=== PATIENT | male | born 1955 | race Caucasian/White ===

== ENCOUNTER 2016-11-05 09:05 | Emergency (ER) | payer OTHER, SELFPAY ==
--- NOTE | 2016-11-05 09:54 | RAD ---
EXAM: CHEST TWO VIES 11/05/16 HISTORY: Dyspnea. COMPARISON: .. FINDINGS: Two views chest: Normal cardiac silhouette. The pulmonary vessels and hilum are normal. Costophrenic angles are clear . No masses or consolidation. No pneumothorax or osseous abnormalities. IMPRESSION: No acute cardiopulmonary process. POS: [facility]
[2016-11-05 10:02] LABS: #Basophils 0.1 thou/uL (0.0-0.2); #Eosinphils 0.6 thou/uL (0.0-0.7); #Lymphocytes 1.3 thou/uL (1.20-3.40); #Monocytes 0.6 thou/uL (0.11-0.59); #Neutrophils 4.4 thou/uL (1.40-6.50); %Basophils 1.9 % (0.0-1.0); %Eosinophils 8.3 % (0.0-10.0); %Lymphocytes 18.3 % (21.0-51.0); %Neutrophils 63.5 % (42.0-75.0); Hemoglobin 15.8 g/dL (14.0-18.0); Mean Corpuscular HGB CONC 32.4 g/dL (32.0-36.0); Mean Corpuscular Hemoglobin 29.5 pg (27.0-31.0); Mean Corpuscular Volume 90.9 fl (80.0-94.0); Mean Platelet Volume 6.8 fL (7.4-10.4); Platelet Count 196 thou/uL (130-400); RBC Distribution Width 13.1 % (11.5-14.5); Red Blood Cell (RBC) Count 5.36 mill/uL (4.70-6.10); White Blood Cell (WBC) Count 6.9 thou/uL (4.8-10.8)
[2016-11-05 10:19] LABS: Bilirubin Negative (Negative); Blood, Urine Trace (Negative); Clarity Clear (Clear); Glucose, Urine (Dipstick) Negative (Negative); Leukocyte Negative (Negative); Nitrite Negative (Negative); Protein, Urine (Dipstick) 30 mg/dL (Neg-Trace); RBC/HPF 0-3 HPF (0-3); Specific Gravity, Urine 1.025 (1.005-1.030)
[2016-11-05 10:20] LABS: ALT (SGPT) 48 U/L (0-55); AST (SGOT) 33 U/L (5-34); Albumin 3.9 g/dL (3.5-5.0); Alkaline Phosphatase 64 U/L (40-150); Anion Gap 15 mmol/L (10-20); BUN (Urea Nitrogen) 13 mg/dL (8.4-25.7); Bilirubin, Total 0.9 mg/dL (0.2-1.2); Calc. Creatinine Clearance 0 mL/min (70-130); Carbon Dioxide 26 mmol/L (22-29); Chloride 102 mmol/L (98-107); Estimated GFR-MDRD Greater than 90; Globulin 2.9 g/dL (2.4-3.5); Glucose 140 mg/dL (70-105); Potassium 4.3 mmol/L (3.5-5.1); Protein, Total 6.8 g/dL (6.0-8.3); Sodium 139 mmol/L (136-145)
[2016-11-05 10:20] LABS: Bacteria/HPF None Seen HPF (None Seen); Squamous Epithelial 0-3 HPF (0-3); WBC/HPF None Seen HPF (0-3)
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
== END 2016-11-05 11:30 | disposition home or self-care (01) ==
LOC: MADERS 09:05
DX: J06.9 Acute upper respiratory infection, unspecified (principal); G47.9 Sleep disorder, unspecified; I10 Essential (primary) hypertension; E66.9 Obesity, unspecified; Z79.899 Other long term (current) drug therapy
CPT/HCPCS: 36415; 71020; 80053; 81003; 81015; 83880; 84484; 85025; 93005

== ENCOUNTER 2018-05-20 10:11 | Emergency (ER) | payer SELFPAY ==
[~2018-05-20 10:11] MED LIST: Nitroglycerin 0.4 MG TAB (25 Tab Bottle) ONE
[2018-05-20 10:48] LABS: INR-International Normal Ratio 0.9; PTT 23.8 SEC (22.9-36.1); Prothrombin Time 12.6 SEC (12.0-14.7)
--- NOTE | 2018-05-20 10:52 | RAD ---
CHEST ONE VIEW: Comparison: 09-05-15, 11-05-16 History: Dyspnea. FINDINGS: Normal cardiac silhouette. The pulmonary vessels are prominent. There are interstitial opacities due to edema or infiltrate. No consolidation or mass. No pleural effusion or pneumothorax. IMPRESSION: Interstitial opacification due to edema or infiltrate. Continued surveillance is recommended. POS: [facility]
[2018-05-20 10:58] LABS: Hemoglobin 15.3 g/dL (14.0-18.0); Mean Corpuscular HGB CONC 32.1 g/dL (32.0-36.0); Mean Corpuscular Hemoglobin 29.8 pg (27.0-31.0); Mean Corpuscular Volume 92.9 fL (78.0-98.0); Mean Platelet Volume 6.7 fL (7.4-10.4); Platelet Count 192 thou/uL (130-400); RBC Distribution Width 13.4 % (11.5-14.5); Red Blood Cell (RBC) Count 5.14 mill/uL (4.70-6.10); White Blood Cell (WBC) Count 6.2 thou/uL (4.8-10.8)
[2018-05-20 10:59] LABS: ALT (SGPT) 71 U/L (8-55); AST (SGOT) 51 U/L (5-34); Albumin 3.9 g/dL (3.4-4.8); Alkaline Phosphatase 61 U/L (40-150); Anion Gap 19 mmol/L (10-20); BUN (Urea Nitrogen) 18 mg/dL (8.4-25.7); Bilirubin, Total 0.8 mg/dL (0.2-1.2); Calc. Creatinine Clearance 0 mL/min (70-130); Calcium 9.2 mg/dL (7.8-10.44); Carbon Dioxide 21 mmol/L (23-31); Chloride 105 mmol/L (98-107); Estimated GFR-MDRD 88; Globulin 2.8 g/dL (2.4-3.5); Glucose 141 mg/dL (80-115); Magnesium 1.5 mg/dL (1.6-2.6); Potassium 4.2 mmol/L (3.5-5.1); Protein, Total 6.7 g/dL (5.8-8.1); Sodium 141 mmol/L (136-145)
[2018-05-20 11:01] LABS: CKMB 1.4 ng/mL (0-6.6); Troponin I 0.014 ng/mL (< 0.028)
[2018-05-20 11:04] LABS: Manual Diff?? YES
[2018-05-20 11:05] LABS: Lymphocytes 27 % (21-51); MDiff Complete? YES; Monocytes 7 % (0-10)
[2018-05-20 11:06] LABS: Anisocytosis SLIGHT = 6-15 cells (100X) (0-5/hpf); Eosinophils 3 % (0-10); PLT Morphology Comment Appears Adequate
[2018-05-20] MEDS ORDERED: Magnesium Sulfate 2 GM/NS 0.9% 50 ML BAG ONE (11:15)
[2018-05-20] MEDS ORDERED: Furosemide 40 MG/4 ML VIAL ONE (11:38)
== END 2018-05-20 11:58 | disposition short-term general hospital (02) ==
LOC: MADERS 10:11
DX: E87.70 Fluid overload, unspecified (principal); R09.02 Hypoxemia; I10 Essential (primary) hypertension; E66.9 Obesity, unspecified
CPT/HCPCS: 71045; 80053; 82553; 83735; 83880; 84484; 85025; 85610; 85730; 93005; 94660; 94760; 96365; 96375; J1940; J3475

== ENCOUNTER 2019-04-21 12:53 | Emergency (ER) | payer SELFPAY ==
[2019-04-21 13:43] LABS: Bilirubin Negative (Negative); Blood, Urine Large (Negative); Glucose, Urine (Dipstick) Negative (Negative); Leukocyte Negative (Negative); Nitrite Negative (Negative); Protein, Urine (Dipstick) 100 mg/dL (Neg-Trace)
[2019-04-21 13:47] LABS: Clarity Hazy (Clear); RBC/HPF Greater than 50 HPF (0-3)
[2019-04-21 13:48] LABS: Bacteria/HPF Rare-Few HPF (None Seen); Squamous Epithelial 0-3 HPF (0-3); WBC/HPF 0-3 HPF (0-3)
[2019-04-21 14:04] LABS: #Basophils 0.2 thou/uL (0.0-0.2); #Eosinphils 0.3 thou/uL (0.0-0.7); #Lymphocytes 1.6 thou/uL (1.20-3.40); #Monocytes 0.8 thou/uL (0.11-0.59); #Neutrophils 8.6 thou/uL (1.40-6.50); %Basophils 1.7 % (0.0-1.0); %Eosinophils 2.9 % (0.0-10.0); %Lymphocytes 13.8 % (21.0-51.0); %Monocytes 7.2 % (0.0-10.0); %Neutrophils 74.4 % (42.0-75.0); Hemoglobin 15.6 g/dL (14.0-18.0); Mean Corpuscular HGB CONC 31.9 g/dL (32.0-36.0); Mean Corpuscular Hemoglobin 29.7 pg (27.0-31.0); Mean Platelet Volume 5.6 fL (7.4-10.4); Platelet Count 209 thou/uL (130-400); RBC Distribution Width 12.8 % (11.5-14.5); Red Blood Cell (RBC) Count 5.27 mill/uL (4.70-6.10); White Blood Cell (WBC) Count 11.6 thou/uL (4.8-10.8)
[2019-04-21] MEDS ORDERED: Lisinopril 10 MG TAB ONE (14:05)
[2019-04-21 14:24] LABS: ALT (SGPT) 84 U/L (8-55); AST (SGOT) 80 U/L (5-34); Albumin 4.2 g/dL (3.4-4.8); Alkaline Phosphatase 88 U/L (40-150); Anion Gap 17 mmol/L (10-20); BUN (Urea Nitrogen) 14 mg/dL (8.4-25.7); Bilirubin, Total 0.7 mg/dL (0.2-1.2); Calc. Creatinine Clearance 0 mL/min (70-130); Calcium 9.9 mg/dL (7.8-10.44); Carbon Dioxide 26 mmol/L (23-31); Chloride 101 mmol/L (98-107); Estimated GFR-MDRD 60; Globulin 3.6 g/dL (2.4-3.5); Glucose 136 mg/dL (80-115); Lipase 21 U/L (8-78); Potassium 4.1 mmol/L (3.5-5.1); Protein, Total 7.8 g/dL (5.8-8.1); Sodium 140 mmol/L (136-145)
[2019-04-21] MEDS ORDERED: Tamsulosin HCl 0.4 MG CAP ONE (15:05)
--- NOTE | 2019-04-21 15:09 | CT ---
ABDOMEN AND PELVIC CT SCAN WITHOUT IV CONTRAST: HISTORY: Left upper abdominal pain, left flank pain. FINDINGS: The lung bases are clear. Borderline sized fatty liver with some minimal fatty sparing adjacent to th e gallbladder. No common duct dilatation. The gallbladder appears unremarkable. The visualized pancre as, spleen, and adrenal glands are unremarkable. There is some minimal fat stranding of the central m esentery, possibly changes of minimal nonspecific mesenteric panniculitis. There is an obstructing 0. 4 cm diameter calculus at the proximal upper left ureter with proximal hydronephrosis and perirenal f at stranding, evidence for obstruction. No evidence for other ureteral calculus. Minimal colonic dive rticulosis without diverticulitis. No CT evidence for acute appendicitis. IMPRESSION: Obstructing proximal 0.4 cm left ureteral calculus with hydronephrosis and perirenal fat stranding. P rominent fatty changes in the liver. Colonic diverticulosis without diverticulitis. Other findings as above. POS: [facility]
--- NOTE | 2019-04-21 15:11 | RAD ---
PA AND LATERAL VIEWS CHEST: 04/21/19 HISTORY: Left upper abdominal pain. FINDINGS: Comparison is made with the exam of 11/05/16. The heart size is borderline. The lungs are expanded without focal areas of consolidation, pneumothor aces, chi pulmonary edema, or pleural effusions. There are degenerative changes in the spine. IMPRESSION: No radiographic evidence of acute cardiopulmonary process. POS: [facility]
== END 2019-04-21 15:25 | disposition home or self-care (01) ==
LOC: MADERS 12:53
DX: N13.2 Hydronephrosis with renal and ureteral calculous obstruction (principal); I11.0 Hypertensive heart disease with heart failure; I50.9 Heart failure, unspecified; Z86.73 Personal history of transient ischemic attack (TIA), and cerebral infarction without residual deficits; F41.9 Anxiety disorder, unspecified; Z79.84 Long term (current) use of oral hypoglycemic drugs; Z79.899 Other long term (current) drug therapy
CPT/HCPCS: 71046; 74176; 80053; 81001; 83690; 84484; 85025; 93005; 94760

== ENCOUNTER 2019-09-23 13:52 | Emergency (ER) | payer SELFPAY ==
[2019-09-23 15:20] LABS: INR-International Normal Ratio 0.9; PTT 24.7 SEC (22.9-36.1); Prothrombin Time 12.1 SEC (12.0-14.7)
[2019-09-23 15:26] LABS: ALT (SGPT) 50 U/L (8-55); AST (SGOT) 50 U/L (5-34); Albumin 4.3 g/dL (3.4-4.8); Alkaline Phosphatase 88 U/L (40-110); Anion Gap 16 mmol/L (10-20); BUN (Urea Nitrogen) 12 mg/dL (8.4-25.7); Bilirubin, Total 0.6 mg/dL (0.2-1.2); Calc. Creatinine Clearance 0 mL/min (70-130); Carbon Dioxide 27 mmol/L (23-31); Chloride 103 mmol/L (98-107); Estimated GFR-MDRD 78; Globulin 2.9 g/dL (2.4-3.5); Glucose 164 mg/dL (80-115); Potassium 4.3 mmol/L (3.5-5.1); Protein, Total 7.2 g/dL (5.8-8.1); Sodium 142 mmol/L (136-145)
[2019-09-23 15:32] LABS: #Basophils 0.1 thou/uL (0.0-0.2); #Eosinphils 0.4 thou/uL (0.0-0.7); #Lymphocytes 1.6 thou/uL (1.20-3.40); #Monocytes 0.7 thou/uL (0.11-0.59); #Neutrophils 4.8 thou/uL (1.40-6.50); %Basophils 1.9 % (0.0-1.0); %Eosinophils 5.5 % (0.0-10.0); %Lymphocytes 20.9 % (21.0-51.0); %Monocytes 8.8 % (0.0-10.0); Anisocytosis SLIGHT = 6-15 cells (100X) (0-5/hpf); Hemoglobin 14.8 g/dL (14.0-18.0); MDiff Complete? YES; Mean Corpuscular Hemoglobin 29.6 pg (27.0-31.0); Mean Corpuscular Volume 98.8 fL (78.0-98.0); Platelet Count 258 thou/uL (130-400); Platelet Morphology Comment Appears Adequate; RBC Distribution Width 14.2 % (11.5-14.5); White Blood Cell (WBC) Count 7.5 thou/uL (4.8-10.8)
--- NOTE | 2019-09-23 15:34 | CT ---
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 No acute hemorrhage or i nfarct. No midline shift. No mass effect. The orbits are intact. No retrobulbar hematoma. Calvarium is intact. Paranasal sinuses and mastoids are clear. Impression: No acute intracranial abnormality.
--- NOTE | 2019-09-23 15:39 | RAD ---
PORTABLE CHEST: 09/23/19 HISTORY: Syncope. Altered mental status. COMPARISON: 05/20/18 study. Heart size is enlarged. Lungs appear clear of any infiltrative process. No signs of overt failure. IMPRESSION: Mild cardiomegaly. POS: [facility]
[2019-09-23] MEDS ORDERED: Aspirin Chewable 81 MG TAB ONE (15:54)
[2019-09-23 16:03] LABS: Bilirubin Negative (Negative); Blood, Urine Negative (Negative); Clarity Hazy (Clear); Glucose, Urine (Dipstick) Negative (Negative); Leukocyte Negative (Negative); Nitrite Negative (Negative); Protein, Urine (Dipstick) 30 mg/dL (Neg-Trace)
[2019-09-23 16:11] LABS: Bacteria/HPF Rare-Few HPF (None Seen); RBC/HPF 0-3 HPF (0-3); Squamous Epithelial 0-3 HPF (0-3); WBC/HPF None Seen HPF (0-3)
== END 2019-09-23 16:45 | disposition left against medical advice (07) ==
LOC: MADERS 13:52
DX: I16.0 Hypertensive urgency (principal); I11.0 Hypertensive heart disease with heart failure; I50.9 Heart failure, unspecified; I67.83 Posterior reversible encephalopathy syndrome; E11.9 Type 2 diabetes mellitus without complications; F41.9 Anxiety disorder, unspecified; Z86.19 Personal history of other infectious and parasitic diseases; Z86.73 Personal history of transient ischemic attack (TIA), and cerebral infarction without residual deficits; Z79.82 Long term (current) use of aspirin; Z79.84 Long term (current) use of oral hypoglycemic drugs; Z79.899 Other long term (current) drug therapy
CPT/HCPCS: 70450; 71045; 80053; 81003; 81015; 84484; 85025; 85610; 85730; 93005

== ENCOUNTER 2020-05-16 06:30 | Emergency (ER) | payer SELFPAY ==
[~2020-05-16 06:30] MED LIST changes: -Nitroglycerin 0.4 MG TAB (25 Tab Bottle) ONE; +Sodium Chloride 0.9% 100 ML BAG ONE
[2020-05-16 07:16] LABS: #Basophils 0.2 thou/uL (0.0-0.2); #Eosinphils 0.4 thou/uL (0.0-0.7); #Lymphocytes 1.5 thou/uL (1.20-3.40); #Neutrophils 7.3 thou/uL (1.40-6.50); %Basophils 1.6 % (0.0-1.0); %Eosinophils 3.5 % (0.0-10.0); %Lymphocytes 14.7 % (21.0-51.0); %Monocytes 9.8 % (0.0-10.0); %Neutrophils 70.4 % (42.0-75.0); Mean Corpuscular HGB CONC 31.2 g/dL (32.0-36.0); Mean Corpuscular Hemoglobin 30.5 pg (27.0-31.0); Mean Corpuscular Volume 97.7 fL (78.0-98.0); Mean Platelet Volume 5.9 fL (7.4-10.4); Platelet Count 226 thou/uL (130-400); RBC Distribution Width 13.1 % (11.5-14.5); Red Blood Cell (RBC) Count 4.61 mill/uL (4.70-6.10); White Blood Cell (WBC) Count 10.4 thou/uL (4.8-10.8)
[2020-05-16] MEDS ORDERED: HYDROmorphone 0.5 MG/0.5 ML SYRINGE ONE (07:18)
[2020-05-16 07:30] LABS: ALT (SGPT) 65 U/L (8-55); AST (SGOT) 50 U/L (5-34); Alkaline Phosphatase 72 U/L (40-110); Anion Gap 18 mmol/L (10-20); BUN (Urea Nitrogen) 10 mg/dL (8.4-25.7); Bilirubin, Total 0.7 mg/dL (0.2-1.2); Calc. Creatinine Clearance 0 mL/min (70-130); Calcium 8.9 mg/dL (7.8-10.44); Carbon Dioxide 28 mmol/L (23-31); Chloride 97 mmol/L (98-107); Estimated GFR-MDRD 83; Globulin 3.2 g/dL (2.4-3.5); Glucose 163 mg/dL (80-115); Potassium 3.9 mmol/L (3.5-5.1); Protein, Total 7.2 g/dL (5.8-8.1); Sodium 139 mmol/L (136-145)
--- NOTE | 2020-05-16 08:27 | CT ---
CT arteriogram chest with IV contrast and 3-D imaging CT arteriogram abdomen with IV contrast and 3-D imaging HISTORY: Chest and back pain. COMPARISON: 04/21/2019. FINDINGS: There is good contrast opacification pulmonary arteries and aorta. Bovine origin of the gre at vessels at the aortic arch. No intimal flap. Scattered mild arterial calcification. Narrowing of the origin of the superior mesenteric artery by a pproximately 50%. Other visceral arteries are widely patent. Liver is diffusely hypodense. Circumaortic left renal vein is noted. Diverticula arise from the colon without adjacent inflammation. Degenerative changes throughout the lumbar spine. IMPRESSION : No evidence of aortic dissection or other acute vascular abnormality. Atherosclerosis. 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 No evide nce of complication. Hepato-steatosis. Diverticulosis. No evidence of diverticulitis.
[2020-05-16] MEDS ORDERED: Lorazepam 2 MG/ML VIAL ONE (08:58)
[2020-05-16] MEDS ORDERED: Iopamidol 370 76% 125 ML VIAL FS ONE (13:05)
== END 2020-05-16 09:30 | disposition home or self-care (01) ==
LOC: MADERS 06:30
DX: M54.2 Cervicalgia (principal); M54.9 Dorsalgia, unspecified; I10 Essential (primary) hypertension; F41.9 Anxiety disorder, unspecified; E11.9 Type 2 diabetes mellitus without complications; I11.0 Hypertensive heart disease with heart failure; I50.9 Heart failure, unspecified; E66.9 Obesity, unspecified; Z86.73 Personal history of transient ischemic attack (TIA), and cerebral infarction without residual deficits
CPT/HCPCS: 71275; 72191; 74175; 80053; 83880; 84484; 85025; 93005; 96374; 96375; J1170; J2060; J3490; Q9967

== ENCOUNTER 2020-07-01 22:56 | Emergency (ER) | payer SELFPAY ==
[2020-07-01] MEDS ORDERED: Lidocaine 1% w/Epinephrine 1:100K 20 ML VIAL ONE (23:47)
== END 2020-07-02 01:01 | disposition home or self-care (01) ==
LOC: MADERS 22:56
DX: S01.511A Laceration without foreign body of lip, initial encounter (principal); S50.311A Abrasion of right elbow, initial encounter; E11.9 Type 2 diabetes mellitus without complications; I11.0 Hypertensive heart disease with heart failure; I50.9 Heart failure, unspecified; F41.9 Anxiety disorder, unspecified; I67.83 Posterior reversible encephalopathy syndrome; E66.9 Obesity, unspecified; Z86.73 Personal history of transient ischemic attack (TIA), and cerebral infarction without residual deficits; W18.2XXA Fall in (into) shower or empty bathtub, initial encounter; Y93.E1 Activity, personal bathing and showering; Y92.002 Bathroom of unspecified non-institutional (private) residence as the place of occurrence of the external cause
CPT/HCPCS: 12052

== ENCOUNTER 2021-02-14 13:05 | Emergency (ER) | payer MEDICARE, SELFPAY ==
[2021-02-14 17:05] LABS: INR-International Normal Ratio 0.9; Prothrombin Time 11.9 sec (12.0-14.7)
[2021-02-14 17:06] LABS: Hemoglobin 16.6 g/dL (14.0-18.0); Mean Corpuscular HGB CONC 30.9 g/dL (32.0-36.0); Mean Corpuscular Hemoglobin 30.8 pg (27.0-31.0); Mean Platelet Volume 6.5 fL (7.4-10.4); PTT 25.4 sec (22.9-36.1); Platelet Count 280 thou/uL (130-400); RBC Distribution Width 15.2 % (11.5-14.5); Red Blood Cell (RBC) Count 5.39 mill/uL (4.70-6.10); White Blood Cell (WBC) Count 11.1 thou/uL (4.8-10.8)
[2021-02-14 17:07] LABS: #Basophils 0.2 thou/uL (0.0-0.2); #Eosinphils 0.6 thou/uL (0.0-0.7); #Lymphocytes 3.5 thou/uL (1.20-3.40); #Neutrophils 5.9 thou/uL (1.40-6.50); %Basophils 1.7 % (0.0-1.0); %Eosinophils 5.3 % (0.0-10.0); %Lymphocytes 31.6 % (21.0-51.0); %Monocytes 8.8 % (0.0-10.0); %Neutrophils 52.7 % (42.0-75.0)
[2021-02-14 17:12] LABS: Anion Gap 28 mmol/L (10-20); BUN (Urea Nitrogen) 12 mg/dL (8.4-25.7); Calc. Creatinine Clearance 0 mL/min (70-130); Carbon Dioxide 17 mmol/L (23-31); Chloride 102 mmol/L (98-107); Potassium 4.2 mmol/L (3.5-5.1); Sodium 143 mmol/L (136-145)
[2021-02-14 17:13] LABS: ALT (SGPT) 55 U/L (8-55); AST (SGOT) 57 U/L (5-34); Albumin 4.5 g/dL (3.4-4.8); Alkaline Phosphatase 96 U/L (40-110); Calcium 9.4 mg/dL (7.8-10.44); Globulin 3.5 g/dL (2.4-3.5); Glucose 132 mg/dL (80-115)
== END 2021-02-14 17:27 | disposition short-term general hospital (02) ==
LOC: MADERS 15:28
DX: R56.9 Unspecified convulsions (principal); E11.9 Type 2 diabetes mellitus without complications; I11.0 Hypertensive heart disease with heart failure; I50.9 Heart failure, unspecified; E66.9 Obesity, unspecified; I67.83 Posterior reversible encephalopathy syndrome; Z86.73 Personal history of transient ischemic attack (TIA), and cerebral infarction without residual deficits
CPT/HCPCS: 71045; 80053; 84484; 85025; 85610; 85730

== ENCOUNTER 2021-07-13 09:35 | Emergency (ER) | payer MEDICARE ==
[2021-07-13] MEDS ORDERED: Diazepam 10 MG/2 ML SYRINGE ONE (10:02)
== END 2021-07-13 10:38 | disposition home or self-care (01) ==
LOC: MADERS 09:35
DX: G40.909 Epilepsy, unspecified, not intractable, without status epilepticus (principal); I11.0 Hypertensive heart disease with heart failure; I50.9 Heart failure, unspecified; E11.9 Type 2 diabetes mellitus without complications; E66.9 Obesity, unspecified; Z79.899 Other long term (current) drug therapy; Z79.84 Long term (current) use of oral hypoglycemic drugs; Z79.82 Long term (current) use of aspirin
CPT/HCPCS: 96372; 99283; J3360

== ENCOUNTER 2021-12-19 06:30 | Emergency (ER) | payer MEDICARE ==
[2021-12-19 06:47] LABS: INR-International Normal Ratio 1.2; PTT 28.2 sec (22.9-36.1)
[2021-12-19 06:48] LABS: #Basophils 0.1 thou/uL (0.0-0.2); #Lymphocytes 1.8 thou/uL (1.20-3.40); #Monocytes 0.5 thou/uL (0.11-0.59); #Neutrophils 6.4 thou/uL (1.40-6.50); %Basophils 1.5 % (0.0-1.0); %Eosinophils 0.4 % (0.0-10.0); %Lymphocytes 20.5 % (21.0-51.0); %Monocytes 5.5 % (0.0-10.0); %Neutrophils 72.2 % (42.0-75.0); Mean Corpuscular HGB CONC 32.7 g/dL (32.0-36.0); Mean Corpuscular Hemoglobin 32.2 pg (27.0-31.0); Mean Corpuscular Volume 98.4 fL (78.0-98.0); Mean Platelet Volume 6.3 fL (7.4-10.4); Platelet Count 210 thou/uL (130-400); RBC Distribution Width 14.5 % (11.5-14.5); Red Blood Cell (RBC) Count 5.28 mill/uL (4.70-6.10); White Blood Cell (WBC) Count 8.8 thou/uL (4.8-10.8)
[2021-12-19 06:59] LABS: ALT (SGPT) 368 U/L (8-55); AST (SGOT) 815 U/L (5-34); Albumin 3.2 g/dL (3.4-4.8); Alcohol 146 mg/dL (Less than 10); Alkaline Phosphatase 177 U/L (40-110); Anion Gap 25 mmol/L (10-20); BUN (Urea Nitrogen) 13 mg/dL (8.4-25.7); Calc. Creatinine Clearance 0 mL/min (70-130); Calcium 8.6 mg/dL (7.8-10.44); Carbon Dioxide 12 mmol/L (23-31); Chloride 105 mmol/L (98-107); Globulin 3.1 g/dL (2.4-3.5); Glucose 202 mg/dL (80-115); Potassium 3.9 mmol/L (3.5-5.1); Protein, Total 6.3 g/dL (5.8-8.1); Sodium 138 mmol/L (136-145)
[2021-12-19 07:17] LABS: CKMB 3.2 ng/mL (0-6.6)
[2021-12-19 07:23] LABS: CK (CPK) 113 U/L (30-200)
[2021-12-19] MEDS ORDERED: Sodium Chloride 0.9% 0 ML ONE (07:26)
[2021-12-19] MEDS ORDERED: Sodium Chloride 0.9% 1,000 ML ONE (07:47)
== END 2021-12-19 08:44 | disposition short-term general hospital (02) ==
LOC: MADERS 06:30
DX: I63.9 Cerebral infarction, unspecified (principal); R29.718 NIHSS score 18; R29.712 NIHSS score 12; F10.129 Alcohol abuse with intoxication, unspecified; R79.89 Other specified abnormal findings of blood chemistry; R77.8 Other specified abnormalities of plasma proteins; I45.10 Unspecified right bundle-branch block; E11.9 Type 2 diabetes mellitus without complications; I11.0 Hypertensive heart disease with heart failure; I50.9 Heart failure, unspecified; E66.9 Obesity, unspecified; Y90.6 Blood alcohol level of 120-199 mg/100 ml; Z87.19 Personal history of other diseases of the digestive system; Z86.73 Personal history of transient ischemic attack (TIA), and cerebral infarction without residual deficits; Z79.82 Long term (current) use of aspirin; Z79.84 Long term (current) use of oral hypoglycemic drugs; Z79.899 Other long term (current) drug therapy
CPT/HCPCS: 70450; 70496; 70498; 80053; 80307; 82550; 82553; 84484; 85025; 85610; 85730; 93005; 96365; J2997; J7030; J7050

== ENCOUNTER 2022-10-20 16:54 | Emergency (ER) | payer OTHER ==
[2022-10-20] MEDS ORDERED: Lorazepam 2 MG/ML VIAL ONE ×2 (17:00→17:47)
[2022-10-20] MEDS ORDERED: levETIRAcetam 500 MG/5 ML VIAL ONE (17:14)
[2022-10-20 17:20] LABS: #Basophils 0.2 thou/uL (0.0-0.2); #Eosinphils 0.6 thou/uL (0.0-0.7); #Neutrophils 7.5 thou/uL (1.40-6.50); %Basophils 1.8 % (0.0-1.0); %Eosinophils 5.2 % (0.0-10.0); %Lymphocytes 24.3 % (21.0-51.0); %Neutrophils 60.8 % (42.0-75.0); Hemoglobin 17.8 g/dL (14.0-18.0); Mean Corpuscular HGB CONC 34.1 g/dL (32.0-36.0); Mean Corpuscular Volume 96.7 fl (78.0-98.0); Platelet Count 307 10x3/uL (130-400); RBC Distribution Width 12.9 % (11.5-14.5); Red Blood Cell (RBC) Count 5.42 mill/uL (4.70-6.10); White Blood Cell (WBC) Count 12.3 10x3/uL (4.8-10.8)
[2022-10-20 17:39] LABS: ALT (SGPT) 34 U/L (8-55); AST (SGOT) 32 U/L (5-34); Albumin 4.1 g/dL (3.4-4.8); Alkaline Phosphatase 85 U/L (40-110); Anion Gap 18 mmol/L (10-20); BUN (Urea Nitrogen) 16 mg/dL (8.4-25.7); Bilirubin, Total 0.6 mg/dL (0.2-1.2); Calc. Creatinine Clearance 0 mL/min (70-130); Calcium 9.2 mg/dL (7.8-10.44); Carbon Dioxide 20 mmol/L (23-31); Chloride 107 mmol/L (98-107); Estimated GFR 92; Globulin 3.2 g/dL (2.4-3.5); Glucose 101 mg/dL (80-115); Magnesium 1.9 mg/dL (1.6-2.6); Protein, Total 7.3 g/dL (5.8-8.1); Sodium 141 mmol/L (136-145)
[2022-10-20] MEDS ORDERED: cloNIDine 0.1mg/24 Hour PATCH ONE (18:28)
[2022-10-20] MEDS ORDERED: cloNIDine 0.1 MG TAB ONE (18:28)
[2022-10-20 18:37] LABS: Acetaminophen Less than 10.0 mcg/mL (10.0-30.0); Alcohol Less than 10 mg/dL (Less than 10); Salicylate Less than 8.0 mg/dL (15.0-30.0)
[2022-10-20] MEDS ORDERED: Rivaroxaban 10 MG TAB PO SCH (19:45)
== END 2022-10-20 19:38 | disposition home or self-care (01) ==
LOC: MADERS 16:54
DX: G40.409 Other generalized epilepsy and epileptic syndromes, not intractable, without status epilepticus (principal); I48.91 Unspecified atrial fibrillation; I11.0 Hypertensive heart disease with heart failure; I50.9 Heart failure, unspecified; E78.00 Pure hypercholesterolemia, unspecified; E66.9 Obesity, unspecified; E11.9 Type 2 diabetes mellitus without complications; G83.84 Todd's paralysis (postepileptic); B19.20 Unspecified viral hepatitis C without hepatic coma; Z86.73 Personal history of transient ischemic attack (TIA), and cerebral infarction without residual deficits; Z79.82 Long term (current) use of aspirin; Z79.84 Long term (current) use of oral hypoglycemic drugs; Z79.899 Other long term (current) drug therapy
CPT/HCPCS: 80053; 80177; 80307; 83735; 83880; 84484; 85025; 93005; 96365; 96372; 96375; 96376; J1953; J2060

== ENCOUNTER 2022-10-22 23:01 | Emergency (ER) | payer OTHER ==
[2022-10-22] MEDS ORDERED: Dexamethasone 4 mg/ml Vial ONE (23:35)
[2022-10-22] MEDS ORDERED: Orphenadrine Citrate 60 MG/2 ML VIAL ONE (23:35)
[2022-10-22] MEDS ORDERED: Ketorolac Tromethamine 30 MG/ML VIAL ONE (23:36)
== END 2022-10-23 00:42 | disposition home or self-care (01) ==
LOC: MADERS 23:01
DX: M62.830 Muscle spasm of back (principal); I11.0 Hypertensive heart disease with heart failure; I50.9 Heart failure, unspecified; E78.5 Hyperlipidemia, unspecified; E11.9 Type 2 diabetes mellitus without complications; E66.9 Obesity, unspecified; Z79.82 Long term (current) use of aspirin; Z79.84 Long term (current) use of oral hypoglycemic drugs; Z79.899 Other long term (current) drug therapy
CPT/HCPCS: 72128; 96372; J1100; J1885; J2360

== ENCOUNTER 2023-01-11 12:08 | Emergency (ER) | payer OTHER ==
[2023-01-11 13:02] LABS: Hemoglobin 15.9 g/dL (14.0-18.0); Mean Corpuscular HGB CONC 33.7 g/dL (32.0-36.0); Mean Corpuscular Hemoglobin 31.5 pg (27.0-31.0); Mean Corpuscular Volume 93.5 fl (78.0-98.0); Mean Platelet Volume 9.5 fL (7.4-10.4); Platelet Count 184 10x3/uL (130-400); RBC Distribution Width 13.4 % (11.5-14.5); Red Blood Cell (RBC) Count 5.05 mill/uL (4.70-6.10); White Blood Cell (WBC) Count 8.4 10x3/uL (4.8-10.8)
[2023-01-11 13:10] LABS: Band 2 % (5-11); Eosinophils 7 % (0-10); Lymphocytes 19 % (21-51); MDiff Complete? YES; Manual Diff?? YES; Monocytes 12 % (0-10); Neutrophil 58 % (42-75); Platelet Morphology Comment Appears Adequate; Reactive Lymphocytes 2 % (0-10)
[2023-01-11 14:13] LABS: ALT (SGPT) 22 U/L (8-55); AST (SGOT) 26 U/L (5-34); Albumin 3.8 g/dL (3.4-4.8); Alkaline Phosphatase 62 U/L (40-110); Anion Gap 16 mmol/L (10-20); BUN (Urea Nitrogen) 14 mg/dL (8.4-25.7); Bilirubin, Total 0.6 mg/dL (0.2-1.2); Calc. Creatinine Clearance 0 mL/min (70-130); Calcium 9.7 mg/dL (7.8-10.44); Carbon Dioxide 22 mmol/L (23-31); Chloride 107 mmol/L (98-107); Estimated GFR 95; Globulin 3.5 g/dL (2.4-3.5); Glucose 127 mg/dL (80-115); Protein, Total 7.3 g/dL (5.8-8.1); Sodium 140 mmol/L (136-145)
[2023-01-11] MEDS ORDERED: Furosemide 20 MG/2 ML VIAL ONE (14:20)
== END 2023-01-11 15:22 | disposition left against medical advice (07) ==
LOC: MADERS 12:08
DX: R00.1 Bradycardia, unspecified (principal); I11.0 Hypertensive heart disease with heart failure; I50.9 Heart failure, unspecified; E78.5 Hyperlipidemia, unspecified; Z87.891 Personal history of nicotine dependence
CPT/HCPCS: 71045; 80053; 83880; 84443; 84484; 85025; 93005; 94760; 96374; J1940

== ENCOUNTER 2024-10-31 16:42 | Emergency (ER) | payer OTHER, SELFPAY ==
[2024-10-31] MEDS ORDERED: Aspirin Chewable 81 MG TAB ONE (16:51)
[2024-10-31 17:08] LABS: #Basophils 0.1 thou/uL (0.0-0.2); #Eosinophils 0.4 thou/uL (0.0-0.7); #Lymphocytes 2.4 thou/uL (1.20-3.40); #Monocytes 0.7 thou/uL (0.11-0.59); #Neutrophils 6.2 thou/uL (1.40-6.50); %Basophils 1.2 % (0.0-1.0); %Eosinophils 4.1 % (0.0-10.0); %Lymphocytes 24.2 % (21.0-51.0); %Monocytes 7.1 % (0.0-10.0); %Neutrophils 63.4 % (42.0-75.0); Hematocrit 46.2 % (42.0-52.0); Mean Corpuscular HGB CONC 32.4 g/dL (32.0-36.0); Mean Corpuscular Hemoglobin 31.5 pg (27.0-31.0); Mean Corpuscular Volume 97.3 fl (78.0-98.0); Mean Platelet Volume 6.1 fL (7.4-10.4); Platelet Count 224 10x3/uL (130-400); Red Blood Cell (RBC) Count 4.75 mill/uL (4.70-6.10); White Blood Cell (WBC) Count 9.8 10x3/uL (4.8-10.8)
[2024-10-31 17:21] LABS: ALT (SGPT) 23 U/L (Less than 45); AST (SGOT) 30 U/L (11-34); Albumin 3.9 g/dL (3.1-4.5); Alkaline Phosphatase 78 U/L (40-110); Anion Gap 19 mmol/L (10-20); BUN (Urea Nitrogen) 14 mg/dL (8.4-25.7); Bilirubin, Total 0.7 mg/dL (0.3-1.2); Calc. Creatinine Clearance 0 mL/min (70-130); Calcium 8.9 mg/dL (7.8-10.44); Carbon Dioxide 18 mmol/L (23-31); Chloride 110 mmol/L (98-107); Estimated GFR 94; Globulin 3.5 g/dL (2.4-3.5); Glucose 64 mg/dL (80-115); Potassium 3.6 mmol/L (3.5-5.1); Protein, Total 7.4 g/dL (5.8-8.1); Sodium 143 mmol/L (136-145)
[2024-10-31 17:22] LABS: Troponin I Less than 0.010 ng/mL (< 0.028)
== END 2024-10-31 18:12 | disposition home or self-care (01) ==
LOC: MADERS 16:42
DX: R07.89 Other chest pain (principal); E78.5 Hyperlipidemia, unspecified; I11.0 Hypertensive heart disease with heart failure; I50.9 Heart failure, unspecified; E11.9 Type 2 diabetes mellitus without complications; I48.91 Unspecified atrial fibrillation; Z79.01 Long term (current) use of anticoagulants; Z79.899 Other long term (current) drug therapy
CPT/HCPCS: 71045; 80053; 83880; 84484; 85025; 93005